=== PATIENT | male | born 1980 | race Caucasian/White ===

== ENCOUNTER 2024-03-07 12:31 | Emergency (ER) | payer MEDICARE, OTHER, SELFPAY ==
[2024-03-07 12:46] VITALS: BP 124/88
--- NOTE | 2024-03-07 15:03 | ED.SKININJ ---
HPI-Injury
General
Chief Complaint: Skin Surface Trauma
Source: patient
Exam Limitations: none
Time Seen by Provider: 03/07/24 14:33
Travel History
Have you had any contact with someone who has COVID-19?: No
Do you have any symptoms of coronavirus? Fever > 100 degrees, chills, cough, shortness of breath, sore throat, loss of taste or smell, muscle aches, or headache?: No
History of Present Illness-Injury
Initial Injury comments:
43-year-old male with history of prior TBI presents after fall while running a 5K today. He fell on his right side scraped his right knee his right hand and forearm in the right periorbital area. He denies a headache or loss of consciousness. He
denies vision change or neck pain. No other complaints at this time
Phy Exam
Physical Exam
Physical Exam:
General: Well-appearing male no acute respiratory distress
HEENT: Normocephalic right pupil measuring 4 mm reactive to 3 mm with slight. Left pupil measuring 2 mm and reactive. There is abrasion and periorbital swelling noted of the right periorbital region
Heart: Regular rate and rhythm no murmurs
Lungs: Clear no wheeze or rales
Skin: Abrasions noted to the right dorsal hand forearm and elbow as well as the right anterior knee
Neurologic exam: Alert oriented to person and place conversing appropriately. No obvious neurologic deficit at acute
Musculoskeletal exam: Good range of motion right leg and upper extremity. Cervical spine nontender
Course
Orders/Labs/Results
Orders:
Orders
03/07/24 15:02
CT Head W/o Iv Contrast Urgent
Comment:
Reason For Exam: fall, prior TBI
03/07/24 15:05
CT Orbits W/o Iv Contrast Urgent
Comment:
Reason For Exam: fall
Vital Signs
Initial and Last Documented VS:
Initial Vital Signs
Temp Pulse Resp BP Pulse Ox
97.7 F 87 17 124/88 99
03/07/24 12:46 03/07/24 12:46 03/07/24 12:46 03/07/24 12:46 03/07/24 12:46
Last Documented Vital Signs
Temp Pulse Resp BP Pulse Ox
97.7 F 87 17 124/88 99
03/07/24 12:46 03/07/24 12:46 03/07/24 12:46 03/07/24 12:46 03/07/24 12:46
MDM/Problems Addressed
Differential Diagnosis Includes:
Fall from standing height. He has multiple areas of abrasion however area of concern is a dilated right pupil. This may be from prior TBI or from current injury. CT of the head and orbits pending.
*Critical Care Note
Total Time (30-74mins, 75-104mins- exclusive of procedures): Not Applicable
Update Note
Update Note:
CT of head and orbits were ordered and reviewed and are negative for acute finding. The wounds on the arm and the leg were cleansed and dressed. Patient stable for discharge. I suspect pupil dilation on the right is likely a product of his prior
TBI
ED Attending Note
-
Portions of this chart may have been created with voice recognition software.� Occasional wrong word or��sound alike� substitutions may have occurred due to the inherent limitations of voice recognition software.
Discharge Plan
Departure
Patient Disposition: Home (Routine Discharge)
Date of Disposition: 03/07/24
Time of Disposition: 17:17
Patient with high blood pressure during this ER visit?: No
Discharge Problem:
Abrasion
Instructions: Wound Care (DC)
Referrals:
Yobani Villagran, DO [Family Provider] -
Activity Restrictions/Additional Instructions:
Apply antibacterial ointment to the wounds. You may use Tylenol if needed for pain. Return if worse otherwise
Interventions
Interventions:
ED-Skin Assessment Last Done: 03/07/24 12:54
Discharge Date and Time
Print Language: MALAYSIAN
== END 2024-03-07 17:37 | disposition home or self-care (01) ==
LOC: EMR 12:31
PROVIDERS: EMERGENCY PHYSICIAN Emergency Medicine; FAMILY PHYSICIAN Internal Medicine
DX: S00.211A Abrasion of right eyelid and periocular area, initial encounter (principal); W19.XXXA Unspecified fall, initial encounter
CPT/HCPCS: 99284; 70450; 70480